=== PATIENT | male | born 1985 | race Caucasian/White ===

== ENCOUNTER 2020-05-11 05:59 | Day surgery (SDC) | payer BC ==
[2020-05-11] MEDS ORDERED: Lactated Ringers 1,000 ML IV SCH (07:00)
[2020-05-11] MEDS ORDERED: DIPRIVAN 200 MG/20 ML IV ONE (08:06)
[2020-05-11 09:12] VITALS: O2SAT 98
--- NOTE | 2020-05-11 09:21 | OP ---
SURGERY DATE/TIME: 05/11/2020 0805 PREOPERATIVE DIAGNOSIS: Diarrhea. POSTOPERATIVE DIAGNOSIS: Sigmoid colitis. PROCEDURE: Colonoscopy with cold forceps biopsy. SURGEON: Dr. Almaguer. ANESTHESIA: MAC. Medications given by anesthesia department. HISTORY: The patient is a 34 year-old white male patient who presents now with issues of diarrhea that the patient has had for some time now. The patient also reports occasional blood. The patient is felt to need to have endoscopic evaluation. He was appraised of the risks of the procedure including the risk of perforation, phlebitis, untoward reaction to medication, bleeding and missed lesions. The patient verbalized his understanding and desired to have the procedure performed. DESCRIPTION OF PROCEDURE: The patient was given the medications by the anesthesia department. He had continuous pulse oximetry, ECG monitoring, intermittent blood pressure monitoring and tidal CO2 monitoring during the examination. He was placed in the left lateral decubitus position. A digital rectal examination was performed and revealed normal anal sphincter tone, no masses and normal prostate. The flexible Olympus pediatric colonoscope was used to intubate the rectum. A view of the colon was developed sequentially to the cecum. Upon insertion and withdrawal was noted patchy areas of aphthous-type ulcers in the sigmoid colon. These were biopsied using cold biopsy technique to determine the nature of the lesions. Upon insertion and withdrawn, no other mucosal lesions being encountered. The scope was removed from the patient who tolerated the procedure well and sent back to OP recovery in good condition. The prep was noted to be fair to good.
[2020-05-11 09:39] VITALS: BP 136/62; PULSE 66
== END 2020-05-11 09:30 | disposition home or self-care (01) ==
LOC: SDC 05:59
PROVIDERS: ATTEND Family Medicine
DX: K52.9 Noninfective gastroenteritis and colitis, unspecified (principal); K92.1 Melena
CPT/HCPCS: J2704

== ENCOUNTER 2021-12-23 04:21 | Emergency (ER) | payer BC ==
[2021-12-23] MEDS ORDERED: Norflex 60 MG/2 ML IM ONE (04:43)
[2021-12-23] MEDS ORDERED: TORAdol 30 mg Injection IM ONE (04:43)
[2021-12-23] MEDS ORDERED: Norflex 60 MG/2 ML ONE (04:49)
[2021-12-23] MEDS ORDERED: TORAdol 30 mg Injection ONE (04:49)
--- NOTE | 2021-12-23 04:53 | ERPHSYRPT ---
- History of Present Illness Time Seen by Provider: 12/23/21 04:43 Source: patient Exam Limitations: no limitations Patient Subjective Stated Complaint: pt states he was bending over to put work boots on and hurt his lower left back, states pain does not radiate down leg. pt rates pain at 8/10 Triage Nursing Assessment: pt alert and oriented, ambulated to room without assistance, holding left lower back. Physician History: 36-year-old male presented in the ER with chief complaint of left sacroiliac area pain sudden onset earlier while he bent over to tie his shoes. Patient reports moderate to severe sharp pain making it difficult to ambulate, nonradiating, aggravated with movements and standing up straight and better with resting and lying down. No numbness tingling weakness of lower extremity, no loss of bowel or bladder control or perineal numbness. Denies any midline back pain. Timing/Duration: hour(s) (2), constant, sudden Method of Injury: bending Quality: sharp Back Pain Location: paraspinous muscles Severity of Pain-Max: severe Severity of Pain-Current: severe Modifying Factors: Worsens With: movement Associated Symptoms: lower back pain, muscle spasms, No numbness in legs/feet, No weakness, No sensory/motor loss, No tingling in legs/feet Previous symptoms: no prior history Allergies/Adverse Reactions: No Known Drug Allergies Allergy (Verified 12/23/21 04:33) Hx Tetanus, Diphtheria Vaccination/Date Given: Yes Hx Influenza Vaccination/Date Given: No Hx Pneumococcal Vaccination/Date Given: No Travel Risk - International Travel Have you traveled outside of the country in past 3 weeks: No - Coronavirus Screening Are you exhibiting any of the following symptoms?: No Close contact with a COVID-19 positive Pt in past 14-21 Days: No - Vaccine Status Have you recieved a Covid-19 vaccination: No - Review of Systems Constitutional: No Symptoms Eyes: No Symptoms Ears, Nose, & Throat: No Symptoms Respiratory: No Symptoms Cardiac: No Symptoms Abdominal/Gastrointestinal: No Symptoms Genitourinary Symptoms: No Symptoms Musculoskeletal: Back Pain Skin: No Symptoms Neurological: No Symptoms Psychological: No Symptoms Endocrine: No Symptoms - Past Medical History Pertinent Past Medical History: No Neurological History: Migraines ENT History: Other Cardiac History: No Pertinent History Respiratory History: No Pertinent History Endocrine Medical History: No Pertinent History Musculoskeletal History: No Pertinent History GI Medical History: No Pertinent History History: No Pertinent History Psycho-Social History: Anxiety Male Reproductive Disorders: No Pertinent History Other Medical History: PTSD. Old eye injury - Past Surgical History Past Surgical History: No Neuro Surgical History: No Pertinent History Cardiac: No Pertinent History Respiratory: No Pertinent History Gastrointestinal: No Pertinent History Genitourinary: No Pertinent History Musculoskeletal: No Pertinent History Male Surgical History: No Pertinent History Other Surgical History: NASAL SURGERY - Social History Smoking Status: Never smoker Exposure to second hand smoke: No Drug Use: none Patient Lives Alone: No - Nursing Vital Signs Nursing Vital Signs: Initial Vital Signs Temperature 98.1 F 12/23/21 04:27 Pulse Rate 83 12/23/21 04:27 Respiratory Rate 18 12/23/21 04:27 Blood Pressure 131/88 12/23/21 04:27 O2 Sat by Pulse Oximetry 98 12/23/21 04:27 Pain Scale Pain Intensity 8 - Physical Exam General Appearance: no apparent distress Eye Exam: PERRL/EOMI Neck Exam: normal inspection, full range of motion Respiratory Exam: normal breath sounds, lungs clear Cardiovascular Exam: regular rate/rhythm, normal heart sounds Gastrointestinal Exam: soft, normal bowel sounds, No tenderness Back Exam: normal inspection, muscle spasm, point tenderness (Left sacroiliac area. 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, normal mood/affect, sensation nml, motor deficits Skin Exam: normal color SpO2 Interpretation: normal SpO2: 98 O2 Delivery: Room Air Ordered Tests: Medication Summary Discontinued Medications Generic Name Dose Route Start Last Admin Trade Name Freq PRN Reason Stop Dose Admin Hydromorphone HCl 1 mg 12/23/21 05:41 12/23/21 05:43 Hydromorphone 1 Mg/1ml Inj 1 Mg/Ml Syringe IM 12/23/21 05:42 1 mg STAT ONE Administration Hydromorphone HCl Confirm 12/23/21 05:42 Hydromorphone 1 Mg/1ml Inj 1 Mg/Ml Syringe Administered 12/23/21 05:43 Dose 1 mg .ROUTE .STK-MED ONE Ketorolac Tromethamine 30 mg 12/23/21 04:43 12/23/21 04:50 Ketorolac Tromethamine 30 Mg/Ml Inj IM 12/23/21 04:44 30 mg STAT ONE Administration Ketorolac Tromethamine Confirm 12/23/21 04:49 Ketorolac Tromethamine 30 Mg/Ml Inj Administered 12/23/21 04:50 Dose 30 mg .ROUTE .STK-MED ONE Orphenadrine Citrate 60 mg 12/23/21 04:43 12/23/21 04:50 Orphenadrine Citrate 60 Mg/2 Ml Vial IM 12/23/21 04:44 60 mg STAT ONE Administration Orphenadrine Citrate Confirm 12/23/21 04:49 Orphenadrine Citrate 60 Mg/2 Ml Vial Administered 12/23/21 04:50 Dose 60 mg .ROUTE .STK-MED ONE - Progress Progress: improved Progress Note: 12/23/21 06:20 Is given symptomatic treatment for pain, on reevaluation pain is better but not completely resolved. Negative neuro exam in lower extremity, do not think has cauda equina and has no midline tenderness. Pain is more in the sacroiliac area left. Given NSAID and muscle relaxants to go home and outpatient follow-up recommended. Discussed signs symptoms of worsening needing return to ER which he seems understanding. Counseled pt/family regarding: diagnosis, need for follow-up - Departure Departure Disposition: Home Clinical Impression: Low back strain Condition: Stable Critical Care Time: No Referrals: [facility], [facility] [Primary Care Provider] - Follow up/PCP as directed (1-2 days for reevaluation) Instructions: Low Back Pain (DC) Additional Instructions: Avoid exertional work. Take pain medication or muscle relaxants as needed. Follow-up with primary care for reevaluation. Return to ER for worsening back pain, numbness tingling weakness of lower extremity, loss of bowel or bladder control or perineal numbness etc. Prescriptions: Ibuprofen 600 mg PO Q6HPRN PRN 10 Days #20 tablet PRN Reason: Pain Cyclobenzaprine HCl 10 mg [Flexeril 10 MG] 10 mg PO TID #12 tablet
[2021-12-23] MEDS ORDERED: Hydromorphone 1 mg/ml Injection IM ONE (05:41)
[2021-12-23] MEDS ORDERED: Hydromorphone 1 mg/ml Injection ONE (05:42)
[2021-12-23 06:05] VITALS: BP 117/82; PULSE 72; O2SAT 98
== END 2021-12-23 06:23 | disposition home or self-care (01) ==
LOC: ED 04:21
DX: S39.012A Strain of muscle, fascia and tendon of lower back, initial encounter (principal); X50.0XXA Overexertion from strenuous movement or load, initial encounter; Z28.310 Unvaccinated for COVID-19
CPT/HCPCS: 96372; 99283; J1170; J1885; J2360